=== PATIENT | female | born 1995 | race Caucasian/White ===

== ENCOUNTER 2016-10-16 08:46 | Emergency (ER) | payer OTHER ==
[~2016-10-16 08:46] MED LIST: ALBUTEROL INH 0.3 ML AERO NEB; BACTRIM DS1 TA1 PO; CEPHALEXIN PO; COMPAZINE10 MG PO; CYCLOBENZAPRINE10 M1 PO; DOXYCYCLIN25 MG/5 ML PO; HYDROCODON-ACE1 EA16 PO; IBUPROFEN600 M1 PO; KEFLEX500 MG PO; LAMICTAL150 MG; LAMICTAL150 MG PO; LEXAPRO10 MG; LEXAPRO20 MG PO; LORTAB ELIXIR480 ML PO; MIRENA IUD; MOTRIN600 MG PO; NORCO 5-325 TA1 EACH PO; PEN-VEE K500 MG PO; PREDNISONE20 MG PO; RISPERDAL; ZITHROMAX250 M1 PO; ZOFRAN4 M2 PO; [UNRECOGNIZED DRUG - OTHER] PO
[2016-10-16 09:39] LABS: URINE BILIRUBIN NEGATIVE (NEG); URINE BLOOD NEGATIVE (NEG); URINE GLUCOSE (UA) NEGATIVE (NEG); URINE KETONE NEGATIVE (NEG); URINE LEUKOCYTE ESTERASE NEGATIVE (NEG); URINE NITRITE NEGATIVE (NEG); URINE PROTEIN NEGATIVE (NEG)
[2016-10-16] MEDS ORDERED: ZOLOFT50 M1 PO (09:49)
[2016-10-16 10:11] LABS: BASO % 0.2 % (0-2); EOS % 1.9 % (0-7); EOSINOPHIL ABSOLUTE COUNT 0.2 tho/cmm (0.0-0.7); HCT-HEMATOCRIT 39.3 % (34.0-49.0); HGB-HEMOGLOBIN 13.3 gm/dl (12.0-15.5); IMMATURE GRANULOCYTES ABSOLUTE 0.02 tho/cmm (0-0.03); IMMATURE GRANULOCYTES PERCENT 0.2 % (0-0.3); LYMPH % 22.2 % (20-45); LYMPH ABSOLUTE COUNT 2.2 tho/cmm (0.8-4.5); MCH (MEAN CORPUSCULAR HGB) 29.2 pg (28.0-32.0); MCHC MEAN CORPUSCULAR HGB CONC 33.8 % (32.0-36.0); MCV (MEAN CELL VOLUME) 86.4 fl (82.0-96.0); MEAN PLATELET VOLUME 9.2 cmc (9.4-12.4); MONO % 5.6 % (0-12); MONOCYTE ABSOLUTE COUNT 0.6 tho/cmm (0.0-1.2); NEUTROPHIL ABSOLUTE COUNT 6.9 tho/cmm (1.6-8.0); NEUTROPHIL-AUTOMATED 6.9 tho/cmm (1.6-8.0); NEUTROPHILS % 69.9 % (40-80); PLATELET COUNT 298 tho/cmm (150-450); RED BLOOD COUNT 4.55 mil/cmm (4.00-5.20); RED CELL DISTRIBUTION WIDTH 12.2 % (12.4-16.4); WHITE BLOOD COUNT 9.9 tho/cmm (4.0-10.0)
[2016-10-16 10:25] LABS: ANION GAP 12 mmol/L (0-20); BLOOD UREA NITROGEN 8 mg/dl (6-24); CALCIUM 9.3 mg/dl (8.5-10.5); CARBON DIOXIDE-VENOUS 26 mmol/L (22-32); CHLORIDE 108 mmol/l (96-110); CREATININE 0.47 mg/dl (0.50-1.10); GLUCOSE 95 mg/dL (70-110); POTASSIUM 4.1 mmol/L (3.7-5.1); SODIUM 142 mmol/L (135-145); eGFR VALUE FOR BLACK >90 mL/Min
[2016-10-16] MEDS ORDERED: MIRENA1 EACH IL (10:28)
[2016-10-16 10:41] LABS: ESR-ERYTHROCYTE SED RATE 2 mm/hr (0-20)
[2016-10-16 11:06] LABS: URINE APPEARANCE CLEAR; URINE COLOR YELLOW
[2016-10-16] MEDS ORDERED: IBUPROFEN600 M1 PO (11:24)
== END 2016-10-16 11:33 ==
LOC: EDMED 08:46
PROVIDERS: Emergency Medicine
DX: J06.9 Acute upper respiratory infection, unspecified (principal); M94.0 Chondrocostal junction syndrome [Tietze]; F32.9 Major depressive disorder, single episode, unspecified; Z79.899 Other long term (current) drug therapy
CPT/HCPCS: J7030